=== PATIENT | male | born 1985 | race Hispanic/Latino ===

== ENCOUNTER 2018-04-16 18:46 | Inpatient (IN) | payer OTHER ==
[~2018-04-16] VITALS: Ht 175.3 cm; Wt 74.0 kg
[2018-04-16 19:15] LABS: APPEARANCE,URINE Turbid (CLEAR); BILIRUBIN,URINE Moderate (NEGATIVE); COLOR,URINE Dark Yellow (YELLOW); GLUCOSE, URINE (UA) Negative (NEGATIVE); KETONES,URINE >=80 mg/dL (NEGATIVE); LEUKOCYTE ESTERASE ,URINE Small (NEGATIVE); NITRATE,URINE Negative (NEGATIVE); OCCULT BLOOD,URINE Large (NEGATIVE); PH,URINE 5.5 (5.0-8.0); PROTEIN,URINE 300 (NEGATIVE)
[2018-04-16] MEDS ORDERED: ONDANSETRON HCL 4 MG/2 ML VIAL ONE ×2 (19:32→21:34)
[2018-04-16 19:34] LABS: BACTERIA,URINE Moderate /HPF (None Seen); RBC,URINE 26-50 /HPF (0-1)
[2018-04-16 19:35] LABS: MUCUS,URINE Many LPF (None Seen)
[2018-04-16 19:42] LABS: BASOPHILS % (AUTO) 0.3 % (0.0-5.0); HEMATOCRIT 54.1 % (42-54); LYMPHOCYTES % (AUTO) 4.7 % (21.0-51.0); MEAN CORPUSCULAR HEMOGLOBIN 30.8 pg (27.0-33.0); MEAN CORPUSCULAR HGB CONC 33.6 g/dL (32.0-36.0); MEAN CORPUSCULAR VOLUME 91.7 fL (79-99); MONOCYTES % (AUTO) 3.3 % (3.0-13.0); NEUTROPHILS % (AUTO) 91.7 % (40.0-77.0); PLATELET COUNT (AUTO) 277 K/uL (130-400); RED CELL DISTRIBUTION WIDTH 13.5 % (11.0-15.5); WHITE BLOOD COUNT (AUTO) 15.9 K/uL (4.8-10.8)
[2018-04-16 19:54] LABS: CREATININE 1.6 mg/dL (0.5-1.5); POTASSIUM 4.2 mmol/L (3.5-5.1)
[2018-04-16 20:00] LABS: ALBUMIN 5.3 g/dL (3.5-5.0); BILIRUBIN,TOTAL 0.9 mg/dL (0.2-1.0); TOTAL PROTEIN, SERUM 9.7 g/dL (6.0-8.3)
[2018-04-16] MEDS ORDERED: SODIUM CHLORIDE 0.9% 1000ML 1,000 ML IV ONE ×2 (20:43→21:20)
[2018-04-16] MEDS ORDERED: SODIUM CHLORIDE 0.9% 50 ML IV ONE (21:33)
[2018-04-16] MEDS ORDERED: CEFTRIAXONE SODIUM 1 GM ONE (21:33)
[2018-04-16] MEDS ORDERED: PROMETHAZINE HCL 25 MG/ML 1ML AMPULE IM ONE (22:03)
[2018-04-17 00:42] VITALS: BP 115/76
[2018-04-17] MEDS ORDERED: ACETAMINOPHEN 325 MG TAB PO PRN (01:15)
[2018-04-17] MEDS ORDERED: ONDANSETRON HCL 4 MG/2 ML VIAL IV PRN (01:15)
[2018-04-17 01:50] LABS: HEMATOCRIT 47.4 % (42-54); MEAN CORPUSCULAR HGB CONC 33.7 g/dL (32.0-36.0); PLATELET COUNT (AUTO) 239 K/uL (130-400); RED BLOOD CELL COUNT(AUTO) 5.15 MIL/uL (4.50-6.20); RED CELL DISTRIBUTION WIDTH 13.3 % (11.0-15.5); WHITE BLOOD COUNT (AUTO) 13.5 K/uL (4.8-10.8)
[2018-04-17 02:05] LABS: CREATININE 1.3 mg/dL (0.5-1.5)
[2018-04-17] MEDS ORDERED: LEVOFLOXACIN 500 MG/D5W 100 ML 100 ML ONE (02:09)
[2018-04-17] MEDS ORDERED: SODIUM CHLORIDE 0.9% 1000ML 1,000 ML IV ONE (02:09)
[2018-04-17] MEDS: SODIUM CHLORIDE 0.9% 1000ML 1,000 ML IV SCH ×4 (02:38→21:25)
[2018-04-17 03:28] VITALS: BP 114/61
[2018-04-17 07:00] VITALS: BP 104/55
[2018-04-17] MEDS ORDERED: PANTOPRAZOLE 40 MG/VIAL IVP SCH (09:00)
[2018-04-17] MEDS: METRONIDAZOLE 500MG/100ML BAG 100 ML IV SCH ×2 (10:14→19:15)
[2018-04-17 11:00] VITALS: BP 106/51
[2018-04-17 16:00] VITALS: BP 104/58
[2018-04-17] MEDS ORDERED: NICOTINE 14 MG/ 24 HR PATCH TD ONE (19:11)
[2018-04-17 20:00] VITALS: BP 91/56
[2018-04-18] VITALS: BP 105/65
[2018-04-18] MEDS ORDERED: LEVOFLOXACIN 500 MG/D5W 100 ML 100 ML IV SCH (01:00)
[2018-04-18] MEDS: METRONIDAZOLE 500MG/100ML BAG 100 ML IV SCH (02:33)
[2018-04-18 04:00] VITALS: BP 118/63
[2018-04-18] MEDS: SODIUM CHLORIDE 0.9% 1000ML 1,000 ML IV SCH (04:05)
[2018-04-18 05:00] LABS: BASOPHILS % (AUTO) 0.4 % (0.0-5.0); EOSINOPHILS % (AUTO) 2.1 % (0.0-8.0); HEMATOCRIT 39.8 % (42-54); LYMPHOCYTES % (AUTO) 36.9 % (21.0-51.0); MEAN CORPUSCULAR HEMOGLOBIN 31.5 pg (27.0-33.0); MEAN CORPUSCULAR HGB CONC 34.6 g/dL (32.0-36.0); MEAN CORPUSCULAR VOLUME 91.2 fL (79-99); NEUTROPHILS % (AUTO) 52.6 % (40.0-77.0); PLATELET COUNT (AUTO) 181 K/uL (130-400); RED BLOOD CELL COUNT(AUTO) 4.36 MIL/uL (4.50-6.20); RED CELL DISTRIBUTION WIDTH 13.3 % (11.0-15.5); WHITE BLOOD COUNT (AUTO) 7.8 K/uL (4.8-10.8)
[2018-04-18 05:15] LABS: ALBUMIN 3.3 g/dL (3.5-5.0); BILIRUBIN,TOTAL 0.9 mg/dL (0.2-1.0); CREATININE 0.9 mg/dL (0.5-1.5); POTASSIUM 3.3 mmol/L (3.5-5.1); TOTAL PROTEIN, SERUM 6.2 g/dL (6.0-8.3)
[2018-04-18 07:30] VITALS: BP 87/48
[2018-04-18] MEDS: METRONIDAZOLE 500 MG TABLET PO SCH ×2 (09:30→20:58)
[2018-04-18] MEDS ORDERED: LEVOFLOXACIN 500 MG TABLET ONE (09:44)
[2018-04-18] MEDS ORDERED: POTASSIUM CHLORIDE 10% ELIXIR 20 MEQ/15 ML UDCUP ONE ×2 (09:44→15:00)
[2018-04-18] MEDS ORDERED: METRONIDAZOLE 500 MG TABLET ONE (09:44)
[2018-04-18] MEDS: PANTOPRAZOLE SODIUM 40 MG TABLET.DR PO SCH (09:50)
[2018-04-18 11:00] VITALS: BP 120/69
[2018-04-18] MEDS ORDERED: ALPRAZOLAM 0.5 MG TABLET PO PRN (11:45)
[2018-04-18] MEDS ORDERED: ALPRAZOLAM 0.5 MG TABLET ONE (12:07)
[2018-04-18] MEDS ORDERED: ESCI20TA PO (13:22)
[2018-04-18] MEDS ORDERED: OLAN15TA2 PO (13:22)
[2018-04-18] MEDS: POTASSIUM CHLORIDE 10% ELIXIR 20 MEQ/15 ML UDCUP PO SCH (15:02)
[2018-04-18 15:55] VITALS: BP 124/72
[2018-04-18 20:00] VITALS: BP 114/67
[2018-04-18] MEDS: NICOTINE 14 MG/ 24 HR PATCH TD SCH (20:58)
[2018-04-18] MEDS ORDERED: OLANZAPINE 5 MG TAB PO SCH (21:00)
[2018-04-19] VITALS: BP 91/55
[2018-04-19] MEDS: METRONIDAZOLE 500 MG TABLET PO SCH ×2 (00:50→08:17)
[2018-04-19 04:00] VITALS: BP 101/54
[2018-04-19 05:25] LABS: HEMATOCRIT 45.5 % (42-54); MEAN CORPUSCULAR HEMOGLOBIN 31.8 pg (27.0-33.0); MEAN CORPUSCULAR HGB CONC 34.9 g/dL (32.0-36.0); MEAN CORPUSCULAR VOLUME 91.3 fL (79-99); MONOCYTES % (AUTO) 7.8 % (3.0-13.0); NEUTROPHILS % (AUTO) 46.2 % (40.0-77.0); NUCLEATED RED BLOOD CELLS 0.1 % (0.0-0.19); PLATELET COUNT (AUTO) 218 K/uL (130-400); RED BLOOD CELL COUNT(AUTO) 4.98 MIL/uL (4.50-6.20); RED CELL DISTRIBUTION WIDTH 13.1 % (11.0-15.5); WHITE BLOOD COUNT (AUTO) 7.2 K/uL (4.8-10.8)
[2018-04-19 05:28] LABS: CREATININE 0.9 mg/dL (0.5-1.5); POTASSIUM 3.6 mmol/L (3.5-5.1)
[2018-04-19] MEDS: PANTOPRAZOLE SODIUM 40 MG TABLET.DR PO SCH (06:49)
[2018-04-19 07:59] VITALS: BP 88/44
[2018-04-19] MEDS: NICOTINE 14 MG/ 24 HR PATCH TD SCH (08:18)
[2018-04-19] MEDS: POTASSIUM CHLORIDE 10% ELIXIR 20 MEQ/15 ML UDCUP PO SCH (08:18)
[2018-04-19] MEDS ORDERED: LEVOFLOXACIN 500 MG TABLET PO SCH (09:00)
[2018-04-19] MEDS ORDERED: PAROXETINE HCL 20 MG TABLET PO SCH (09:00)
[2018-04-19 11:00] VITALS: BP 97/53
[2018-04-19] MEDS ORDERED: PARO-66 PO (13:16)
[2018-04-19] MEDS ORDERED: LEVO500T2 PO (13:16)
== END 2018-04-19 15:16 | disposition home or self-care (01) | DRG 690 ==
LOC: EDH 18:46 → EDHIP 18:47 → 3CH 23:43
PROVIDERS: ADMIT Internal Medicine; ATTEND Internal Medicine
DX: N39.0 Urinary tract infection, site not specified (principal); N20.0 Calculus of kidney; E86.0 Dehydration; F31.9 Bipolar disorder, unspecified; F43.22 Adjustment disorder with anxiety; K52.9 Noninfective gastroenteritis and colitis, unspecified; F17.210 Nicotine dependence, cigarettes, uncomplicated; Z80.1 Family history of malignant neoplasm of trachea, bronchus and lung; Z81.8 Family history of other mental and behavioral disorders
CPT/HCPCS: 36415; 74176; 80048; 80053; 81001; 82150; 83690; 84132; 85025; 85027; 87046; 87088; 87205; 87493; 87804; C9113; J0696; J1956; J2405; J2550; J3490; J7030

== ENCOUNTER 2019-09-04 21:01 | Emergency (ER) | payer OTHER ==
[~2019-09-04 21:01] MED LIST: LEVO500T2 PO; OLAN15TA2 PO; PARO-66 PO
[2019-09-04] MEDS ORDERED: ACETAMINOPHEN EXTRA STRENGTH 500 MG TABLET ONE (21:50)
[2019-09-04 22:20] LABS: RAPID GROUP A STREP NEGATIVE (NEGATIVE)
[2019-09-04] MEDS ORDERED: KETOROLAC TROMETHAMINE 60 MG/2 ML VIAL ONE (23:07)
[2019-09-04] MEDS ORDERED: DEXAMETHASONE SOD PHOSPHATE 4 MG/ML 1ML VIAL ONE (23:07)
== END 2019-09-04 23:23 | disposition home or self-care (01) ==
LOC: EDH 21:01
DX: J10.1 Influenza due to other identified influenza virus with other respiratory manifestations (principal); F31.9 Bipolar disorder, unspecified; Z72.0 Tobacco use
CPT/HCPCS: 87804 ×2; 87880; 96372 ×2; 99284; J1100; J1885

== ENCOUNTER 2019-12-17 15:54 | Emergency (ER) | payer SELFPAY ==
[2019-12-17 17:59] LABS: RAPID GROUP A STREP NEGATIVE (NEGATIVE)
== END 2019-12-17 18:29 | disposition home or self-care (01) ==
LOC: EDH 15:54
DX: J02.9 Acute pharyngitis, unspecified (principal); R05 Cough; F31.9 Bipolar disorder, unspecified
CPT/HCPCS: 87804; 87880

== ENCOUNTER 2020-05-27 20:37 | Emergency (ER) | payer OTHER ==
[2020-05-27] MEDS ORDERED: KETOROLAC TROMETHAMINE 30MG/ML ONE (21:05)
[2020-05-27] MEDS ORDERED: ORPHENADRINE CITRATE 30 MG/ML ML ONE (21:05)
[2020-05-27] MEDS ORDERED: LIDOCAINE 5% TOPICAL PATCH TP ONE (21:05)
== END 2020-05-27 21:14 | disposition home or self-care (01) ==
LOC: EDH 20:37
DX: M62.830 Muscle spasm of back (principal); M54.6 Pain in thoracic spine; F41.9 Anxiety disorder, unspecified; F31.9 Bipolar disorder, unspecified; Z72.0 Tobacco use
CPT/HCPCS: 96372 ×2; 99284; J1885; J2360

== ENCOUNTER 2020-05-29 17:47 | Emergency (ER) | payer OTHER | END 2020-05-29 18:59 | disposition home or self-care (01) | LOC: EDH 17:47 | DX: F41.1 Generalized anxiety disorder (principal); R20.2 Paresthesia of skin; F31.9 Bipolar disorder, unspecified; Z79.899 Other long term (current) drug therapy | CPT/HCPCS: 99281 ==

== ENCOUNTER 2021-03-22 09:34 | Emergency (ER) | payer OTHER, SELFPAY ==
[~2021-03-22] VITALS: Ht 172.7 cm; Wt 68.0 kg
[2021-03-22 10:25] LABS: BASOPHILS % (AUTO) 0.3 % (0.0-5.0); HEMATOCRIT 48.3 % (42-54); LYMPHOCYTES % (AUTO) 6.5 % (21.0-51.0); MEAN CORPUSCULAR HEMOGLOBIN 31.4 pg (27.0-33.0); MEAN CORPUSCULAR VOLUME 87.2 fL (79-99); MONOCYTES % (AUTO) 3.6 % (3.0-13.0); PLATELET COUNT (AUTO) 318 K/uL (130-400); RED BLOOD CELL COUNT(AUTO) 5.54 MIL/uL (4.50-6.20); RED CELL DISTRIBUTION WIDTH 12.8 % (11.0-15.5); WHITE BLOOD COUNT (AUTO) 14.4 K/uL (4.8-10.8)
[2021-03-22] MEDS ORDERED: ONDANSETRON 4MG INJ ONE (10:42)
[2021-03-22 10:52] LABS: CREATININE 1.6 mg/dL (0.5-1.5)
[2021-03-22 10:56] LABS: ALBUMIN 5.2 g/dL (3.5-5.0); BILIRUBIN,TOTAL 1.3 mg/dL (0.2-1.0); TOTAL PROTEIN, SERUM 9.3 g/dL (6.0-8.3)
[2021-03-22] MEDS ORDERED: ONDANSETRON 4MG INJ IVP ONE (11:00)
[2021-03-22] MEDS ORDERED: 0.9%NACL 1000ML 1,000 ML IV ONE ×2 (11:00→13:00)
[2021-03-22 13:59] LABS: APPEARANCE,URINE Clear (CLEAR); BILIRUBIN,URINE Negative (NEGATIVE); COLOR,URINE Dark Yellow (YELLOW); GLUCOSE, URINE (UA) Negative (NEGATIVE); KETONES,URINE >=160 mg/dL (NEGATIVE); LEUKOCYTE ESTERASE ,URINE Negative (NEGATIVE); NITRATE,URINE Negative (NEGATIVE); OCCULT BLOOD,URINE Negative (NEGATIVE); PH,URINE 6.5 (5.0-8.0); PROTEIN,URINE POS 1+ mg/dL (NEGATIVE)
[2021-03-22 14:05] LABS: BACTERIA,URINE Rare /HPF (None Seen); RBC,URINE 0-1 /HPF (0-1); SQUAMOUS EPITHELIAL CELL,UR Rare /HPF (0-2); WBC,URINE 0-1 /HPF (0-1)
[2021-03-22 14:06] LABS: AMPHET/METH SCREEN,URINE NEGATIVE (NEGATIVE); BARBITURATE SCREEN, URINE NEGATIVE (NEGATIVE); BENZODIAZEPINES SCREEN,URINE NEGATIVE (NEGATIVE); CANNABINOID SCREEN,URINE POSITIVE (NEGATIVE); COCAINE SCREEN,URINE NEGATIVE (NEGATIVE); OPIATE SCREEN,URINE NEGATIVE (NEGATIVE); PHENCYCLIDINE SCREEN,URINE NEGATIVE (NEGATIVE)
[2021-03-22] MEDS ORDERED: ONDA4TAB4 PO (15:31)
[2021-03-22 16:03] VITALS: BP 135/84
== END 2021-03-22 16:04 | disposition home or self-care (01) ==
LOC: EDH 09:34
DX: E86.0 Dehydration (principal); R11.2 Nausea with vomiting, unspecified; F12.10 Cannabis abuse, uncomplicated; Z20.822 Contact with and (suspected) exposure to COVID-19; F31.9 Bipolar disorder, unspecified; Z79.899 Other long term (current) drug therapy
CPT/HCPCS: 36415; 74176; 80053; 80305; 81001; 82150; 83690; 85025; 87635; 87804 ×2; 87880; 96361 ×2; 96374; 99284; C9803; J2405; J7030 ×2

== ENCOUNTER 2022-11-24 12:05 | Emergency (ER) | payer OTHER ==
[~2022-11-24] VITALS: Ht 170.2 cm; Wt 70.3 kg
[~2022-11-24 12:05] MED LIST changes: +ONDA4TAB4 PO; +PARO-149 PO; -PARO-66 PO
[2022-11-24] MEDS ORDERED: ONDANSETRON 4MG INJ IVP ONE (12:30)
[2022-11-24] MEDS ORDERED: 0.9%NACL 1000ML 1,000 ML IV ONE (12:30)
[2022-11-24 12:48] LABS: BASOPHILS % (AUTO) 0.3 % (0.0-5.0); EOSINOPHILS % (AUTO) 0.1 % (0.0-8.0); HEMATOCRIT 48.8 % (42-54); LYMPHOCYTES % (AUTO) 4.8 % (21.0-51.0); MEAN CORPUSCULAR HEMOGLOBIN 31.4 pg (27.0-33.0); MEAN CORPUSCULAR HGB CONC 35.9 g/dL (32.0-36.0); MEAN CORPUSCULAR VOLUME 87.5 fL (79-99); MONOCYTES % (AUTO) 3.5 % (3.0-13.0); NEUTROPHILS % (AUTO) 90.8 % (40.0-77.0); PLATELET COUNT (AUTO) 291 K/uL (130-400); RED BLOOD CELL COUNT(AUTO) 5.58 MIL/uL (4.50-6.20); RED CELL DISTRIBUTION WIDTH 12.4 % (11.0-15.5); WHITE BLOOD COUNT (AUTO) 15.6 K/uL (4.8-10.8)
[2022-11-24 13:10] LABS: ALANINE AMINOTRANSFERASE 19 U/L (12-78); ALBUMIN 5.4 g/dL (3.5-5.0); ASPARTATE AMINOTRANSFERASE 21 U/L (10-37); CARBON DIOXIDE 24 mmol/L (21-32); CHLORIDE 99 mmol/L (101-111); CREATININE 1.2 mg/dL (0.5-1.5); GLOMERULAR FILTR. RATE CALC 81 mL/min (>90); GLUCOSE,RANDOM 97 mg/dL (70-105); POTASSIUM 3.8 mmol/L (3.5-5.1); SODIUM SERUM 140 mmol/L (136-145); TOTAL PROTEIN, SERUM 8.8 g/dL (6.0-8.3); UREA NITROGEN, BLOOD 11 mg/dL (7-18)
[2022-11-24 13:13] LABS: LIPASE < 50 U/L (114-286)
[2022-11-24] MEDS ORDERED: ONDA4TAB10 PO (13:13)
[2022-11-24] MEDS ORDERED: PROMETHAZINE HCL 25 MG/ML 1ML AMPULE IM ONE (14:00)
[2022-11-24 14:21] VITALS: BP 128/64
== END 2022-11-24 14:26 | disposition home or self-care (01) ==
LOC: EDH 12:05
DX: K52.9 Noninfective gastroenteritis and colitis, unspecified (principal); F41.9 Anxiety disorder, unspecified; F31.9 Bipolar disorder, unspecified; Z79.899 Other long term (current) drug therapy
CPT/HCPCS: 99285; 74176; 96374; 96361; 80053; 83690; 85025; 36415; 96372; J7030; J2550; J2405

== ENCOUNTER 2023-06-20 20:36 | Inpatient (IN) | payer OTHER ==
[~2023-06-20] VITALS: Ht 170.2 cm; Wt 59.5 kg
[~2023-06-20 20:36] MED LIST changes: +ONDA4TAB10 PO
[2023-06-20 21:59] LABS: BASOPHILS # (AUTO) 0.04 K/uL (0.00-0.20); BASOPHILS % (AUTO) 0.3 % (0.0-5.0); HEMATOCRIT 52.1 % (42-54); IMMATURE GRANULOCYTE ABSOLUTE 0.07 K/uL (0-1); LYMPHOCYTES # (AUTO) 0.7 K/uL (1.0-4.8); LYMPHOCYTES % (AUTO) 4.7 % (21.0-51.0); MEAN CORPUSCULAR HEMOGLOBIN 32.6 pg (27.0-33.0); MEAN CORPUSCULAR HGB CONC 35.5 g/dL (32.0-36.0); MEAN CORPUSCULAR VOLUME 91.7 fL (79-99); MONOCYTES # (AUTO) 0.4 K/uL (0.1-1.0); MONOCYTES % (AUTO) 2.8 % (3.0-13.0); NEUTROPHILS # (AUTO) 14.2 K/uL (1.8-7.7); NEUTROPHILS % (AUTO) 91.7 % (40.0-77.0); PLATELET COUNT (AUTO) 275 K/uL (130-400); RED BLOOD CELL COUNT(AUTO) 5.68 MIL/uL (4.50-6.20); RED CELL DISTRIBUTION WIDTH 12.2 % (11.0-15.5); WHITE BLOOD COUNT (AUTO) 15.5 K/uL (4.8-10.8)
[2023-06-20 22:00] LABS: APPEARANCE,URINE CLOUDY (CLEAR); BILIRUBIN,URINE 1 mg/dL (NEGATIVE); COLOR,URINE YELLOW (YELLOW); GLUCOSE, URINE (UA) 50 mg/dL (NEGATIVE); KETONES,URINE 60 mg/dL (NEGATIVE); LEUKOCYTE ESTERASE ,URINE NEGATIVE Leu/uL (NEGATIVE); NITRATE,URINE NEGATIVE (NEGATIVE); OCCULT BLOOD,URINE SMALL (NEGATIVE); PH,URINE 5.5 (5.0-8.0); PROTEIN,URINE 300 mg/dL (NEGATIVE); UROBILINOGEN,URINE 3 mg/dL (0.2-1.0)
[2023-06-20 22:04] LABS: ADD UA MICROSCOPIC YES
[2023-06-20 22:07] LABS: CREATININE 1.6 mg/dL (0.5-1.5); POTASSIUM 3.8 mmol/L (3.5-5.1)
[2023-06-20 22:07] LABS: BACTERIA,URINE FEW /HPF (None Seen); HYALINE CASTS, URINE 26-50 /LPF (0-1 /LPF); MUCUS,URINE MOD LPF (None Seen); SQUAMOUS EPITHELIAL CELL,UR FEW /HPF (0-2); YEAST,URINE BUDDING RARE /HPF (None Seen)
[2023-06-20 22:11] LABS: ALBUMIN 5.4 g/dL (3.5-5.0); BILIRUBIN,TOTAL 1.1 mg/dL (0.2-1.0); TOTAL PROTEIN, SERUM 9.4 g/dL (6.0-8.3)
[2023-06-20] MEDS ORDERED: ONDANSETRON ODT 4MG TAB SL ONE (23:00)
[2023-06-20 23:16] LABS: RAPID GROUP A STREP negative (NEGATIVE)
[2023-06-20 23:20] LABS: SARS-CoV-2, RNA, NAAT NEGATIVE SARS CoV-2 (NEGATIVE)
[2023-06-20 23:25] LABS: INFLUENZA TYPE A Negative For Type A (NEGATIVE); INFLUENZA TYPE B Negative For Type B (NEGATIVE)
[2023-06-21] MEDS ORDERED: HYOSCYAMINE SULFATE 0.125 MG TAB.SUBL SL ONE
[2023-06-21] MEDS ORDERED: ONDANSETRON 4MG INJ IVP ONE
[2023-06-21] MEDS ORDERED: FAMOTIDINE 20MG VIAL IV ONE
[2023-06-21] MEDS ORDERED: 0.9%NACL 1000ML 1,000 ML IV ONE ×2 (01:00)
[2023-06-21] MEDS ORDERED: PROMETHAZINE HCL 25 MG/ML 1ML AMPULE IM ONE (01:00)
[2023-06-21 01:14] LABS: AMPHET/METH SCREEN,URINE NEGATIVE (NEGATIVE); BARBITURATE SCREEN, URINE NEGATIVE (NEGATIVE); BENZODIAZEPINES SCREEN,URINE NEGATIVE (NEGATIVE); CANNABINOID SCREEN,URINE POSITIVE (NEGATIVE); COCAINE SCREEN,URINE NEGATIVE (NEGATIVE); OPIATE SCREEN,URINE NEGATIVE (NEGATIVE); PHENCYCLIDINE SCREEN,URINE NEGATIVE (NEGATIVE)
[2023-06-21] MEDS ORDERED: 0.9%NACL 1000ML 1,000 ML IV SCH (01:30)
[2023-06-21] MEDS ORDERED: CEFTRIAXONE 1G VIAL IVPB ONE (01:30)
[2023-06-21] MEDS ORDERED: LACTATED RINGERS 1000ML 1,983 ML IV ONE (02:00)
[2023-06-21] MEDS ORDERED: ZYPREXA PO (02:09)
[2023-06-21] MEDS ORDERED: [UNRECOGNIZED DRUG - OTHER] PO (02:10)
[2023-06-21] MEDS: ZOSYN 3.375GM +NS 50ML IV SCH ×3 (02:12→18:09)
[2023-06-21] MEDS ORDERED: MORPHINE 2 MG SYG IV PRN (03:00)
[2023-06-21] MEDS ORDERED: MORPHINE 4 MG SYG IV PRN (03:00)
[2023-06-21] MEDS ORDERED: MAGNESIUM 2GM PREMIX 50ML 50 ML IV PRN (03:00)
[2023-06-21] MEDS ORDERED: LACTATED RINGERS 1000ML 1,000 ML IV SCH (03:00)
[2023-06-21] MEDS ORDERED: ACETAMINOPHEN 325 MG TAB PO PRN ×2 (03:00)
[2023-06-21] MEDS ORDERED: LOPERAMIDE HCL 2 MG CAP PO PRN (03:30)
[2023-06-21 04:06] LABS: BASOPHILS # (AUTO) 0.01 K/uL (0.00-0.20); BASOPHILS % (AUTO) 0.1 % (0.0-5.0); HEMATOCRIT 41.5 % (42-54); IMMATURE GRANULOCYTE ABSOLUTE 0.07 K/uL (0-1); LYMPHOCYTES # (AUTO) 0.8 K/uL (1.0-4.8); LYMPHOCYTES % (AUTO) 7.1 % (21.0-51.0); MEAN CORPUSCULAR HEMOGLOBIN 32.1 pg (27.0-33.0); MEAN CORPUSCULAR HGB CONC 35.9 g/dL (32.0-36.0); MEAN CORPUSCULAR VOLUME 89.4 fL (79-99); MONOCYTES # (AUTO) 0.4 K/uL (0.1-1.0); MONOCYTES % (AUTO) 3.2 % (3.0-13.0); NEUTROPHILS # (AUTO) 9.7 K/uL (1.8-7.7); PLATELET COUNT (AUTO) 223 K/uL (130-400); RED BLOOD CELL COUNT(AUTO) 4.64 MIL/uL (4.50-6.20); RED CELL DISTRIBUTION WIDTH 12.2 % (11.0-15.5)
[2023-06-21 04:09] LABS: MAGNESIUM 1.8 mg/dL (1.80-2.40); PHOSPHORUS 2.8 mg/dL (2.5-4.9); POTASSIUM 3.4 mmol/L (3.5-5.1)
[2023-06-21] MEDS: POTASSIUM CHLORIDE 20MEQ/100ML 100 ML IV PRN (05:00)
[2023-06-21] MEDS: ONDANSETRON 4MG INJ IV PRN ×2 (07:45→12:35)
[2023-06-21] MEDS: FAMOTIDINE 20MG VIAL IV SCH ×2 (10:14→19:34)
[2023-06-21] MEDS: ENOXAPARIN SODIUM 40 MG/0.4 ML SYRINGE SQ SCH (10:14)
[2023-06-21 10:41] LABS: BASOPHILS # (AUTO) 0.01 K/uL (0.00-0.20); BASOPHILS % (AUTO) 0.1 % (0.0-5.0); EOSINOPHILS # (AUTO) 0.01 K/uL (0.00-0.70); EOSINOPHILS % (AUTO) 0.1 % (0.0-8.0); HEMATOCRIT 41.6 % (42-54); IMMATURE GRANULOCYTE ABSOLUTE 0.05 K/uL (0-1); LYMPHOCYTES # (AUTO) 1.1 K/uL (1.0-4.8); LYMPHOCYTES % (AUTO) 10.5 % (21.0-51.0); MEAN CORPUSCULAR HEMOGLOBIN 31.9 pg (27.0-33.0); MEAN CORPUSCULAR HGB CONC 35.1 g/dL (32.0-36.0); MEAN CORPUSCULAR VOLUME 90.8 fL (79-99); MONOCYTES # (AUTO) 0.8 K/uL (0.1-1.0); MONOCYTES % (AUTO) 7.3 % (3.0-13.0); NEUTROPHILS # (AUTO) 8.5 K/uL (1.8-7.7); NEUTROPHILS % (AUTO) 81.5 % (40.0-77.0); PLATELET COUNT (AUTO) 222 K/uL (130-400); RED BLOOD CELL COUNT(AUTO) 4.58 MIL/uL (4.50-6.20); RED CELL DISTRIBUTION WIDTH 12.5 % (11.0-15.5); WHITE BLOOD COUNT (AUTO) 10.4 K/uL (4.8-10.8)
[2023-06-21 10:47] LABS: CREATININE 0.9 mg/dL (0.5-1.5); POTASSIUM 3.8 mmol/L (3.5-5.1)
[2023-06-21 11:00] VITALS: BP 110/60; PULSE 57; RESP 18
[2023-06-21 16:00] VITALS: BP 145/77; PULSE 47; RESP 18
[2023-06-21 16:02] LABS: BASOPHILS # (AUTO) 0.02 K/uL (0.00-0.20); BASOPHILS % (AUTO) 0.2 % (0.0-5.0); HEMATOCRIT 42.3 % (42-54); IMMATURE GRANULOCYTE ABSOLUTE 0.04 K/uL (0-1); LYMPHOCYTES # (AUTO) 1.1 K/uL (1.0-4.8); LYMPHOCYTES % (AUTO) 8.7 % (21.0-51.0); MEAN CORPUSCULAR HEMOGLOBIN 32.3 pg (27.0-33.0); MEAN CORPUSCULAR HGB CONC 35.7 g/dL (32.0-36.0); MEAN CORPUSCULAR VOLUME 90.4 fL (79-99); MONOCYTES % (AUTO) 7.6 % (3.0-13.0); NEUTROPHILS # (AUTO) 10.9 K/uL (1.8-7.7); NEUTROPHILS % (AUTO) 83.2 % (40.0-77.0); PLATELET COUNT (AUTO) 221 K/uL (130-400); RED BLOOD CELL COUNT(AUTO) 4.68 MIL/uL (4.50-6.20); RED CELL DISTRIBUTION WIDTH 12.5 % (11.0-15.5); WHITE BLOOD COUNT (AUTO) 13.1 K/uL (4.8-10.8)
[2023-06-21 16:14] LABS: POTASSIUM 3.9 mmol/L (3.5-5.1)
[2023-06-21 20:00] VITALS: BP 97/61; PULSE 61; RESP 18; O2SAT 96
[2023-06-22] VITALS (8 sets, daily range): BP systolic 93–108; BP diastolic 44–65; PULSE 47–51; RESP 17–18; O2SAT 97–98
[2023-06-22] MEDS: ZOSYN 3.375GM +NS 50ML IV SCH ×3 (01:25→16:54)
[2023-06-22 05:51] LABS: BASOPHILS # (AUTO) 0.04 K/uL (0.00-0.20); BASOPHILS % (AUTO) 0.5 % (0.0-5.0); EOSINOPHILS # (AUTO) 0.04 K/uL (0.00-0.70); EOSINOPHILS % (AUTO) 0.5 % (0.0-8.0); HEMATOCRIT 39.2 % (42-54); IMMATURE GRANULOCYTE ABSOLUTE 0.03 K/uL (0-1); LYMPHOCYTES # (AUTO) 2.3 K/uL (1.0-4.8); LYMPHOCYTES % (AUTO) 28.3 % (21.0-51.0); MEAN CORPUSCULAR HEMOGLOBIN 32.6 pg (27.0-33.0); MEAN CORPUSCULAR HGB CONC 34.9 g/dL (32.0-36.0); MEAN CORPUSCULAR VOLUME 93.3 fL (79-99); MONOCYTES # (AUTO) 0.7 K/uL (0.1-1.0); MONOCYTES % (AUTO) 8.4 % (3.0-13.0); NEUTROPHILS # (AUTO) 5.1 K/uL (1.8-7.7); NEUTROPHILS % (AUTO) 61.9 % (40.0-77.0); PLATELET COUNT (AUTO) 181 K/uL (130-400); RED CELL DISTRIBUTION WIDTH 12.5 % (11.0-15.5); WHITE BLOOD COUNT (AUTO) 8.2 K/uL (4.8-10.8)
[2023-06-22 06:13] LABS: CREATININE 0.9 mg/dL (0.5-1.5); MAGNESIUM 2.5 mg/dL (1.80-2.40); POTASSIUM 3.5 mmol/L (3.5-5.1)
[2023-06-22] MEDS: POTASSIUM CHLORIDE 20MEQ/100ML 100 ML IV PRN (06:40)
[2023-06-22] MEDS: FAMOTIDINE 20MG VIAL IV SCH ×2 (09:56→20:33)
[2023-06-22] MEDS: ENOXAPARIN SODIUM 40 MG/0.4 ML SYRINGE SQ SCH (09:57)
[2023-06-22] MEDS ORDERED: KCL 20 MEQ ERTAB PO ONE (09:59)
[2023-06-22] MEDS: ONDANSETRON 4MG INJ IV PRN ×2 (13:31→20:33)
[2023-06-22] MEDS ORDERED: OLAN20TA2 PO (22:06)
[2023-06-22] MEDS ORDERED: BUSP10TA3 PO (22:06)
[2023-06-23 01:43] VITALS: BP 108/67; PULSE 50; RESP 17
[2023-06-23] MEDS: ZOSYN 3.375GM +NS 50ML IV SCH ×2 (02:13→09:43)
[2023-06-23 03:34] VITALS: BP 92/49; PULSE 52; RESP 17
[2023-06-23 08:00] VITALS: BP 101/66; PULSE 50; RESP 16; O2SAT 96
[2023-06-23] MEDS: FAMOTIDINE 20MG VIAL IV SCH (08:35)
[2023-06-23] MEDS: ENOXAPARIN SODIUM 40 MG/0.4 ML SYRINGE SQ SCH (08:35)
== END 2023-06-23 10:40 | disposition home or self-care (01) | DRG 392 ==
LOC: EDH 20:36 → EDHIP 20:37 → 2CH 06-21 11:05 → 3CH 06-21 15:35
PROVIDERS: ADMIT Internal Medicine; ATTEND Internal Medicine
DX: K52.9 Noninfective gastroenteritis and colitis, unspecified (principal); N17.9 Acute kidney failure, unspecified; Z20.822 Contact with and (suspected) exposure to COVID-19; R11.2 Nausea with vomiting, unspecified; E86.0 Dehydration; F12.10 Cannabis abuse, uncomplicated; F17.200 Nicotine dependence, unspecified, uncomplicated; F31.9 Bipolar disorder, unspecified; F41.9 Anxiety disorder, unspecified; N20.0 Calculus of kidney; Z80.1 Family history of malignant neoplasm of trachea, bronchus and lung; Z59.7 Insufficient social insurance and welfare support
CPT/HCPCS: 36415; 74150; 80048; 80053; 80305; 81001; 83605; 83735; 84100; 84145; 85025; 87040; 87088; 87635; 87804; 87880; C9803; G0378; J0696; J1650; J2405; J2543; J2550; J3475; J3480; J3490; J7030; J7120